=== PATIENT | female | born 1970 | race Hispanic/Latino ===

== ENCOUNTER 2017-09-25 12:26 | Emergency (ER) | payer MEDICAID, OTHER ==
[2017-09-25 13:35] LABS: APPEARANCE,URINE Clear (CLEAR); BILIRUBIN,URINE Negative (NEGATIVE); COLOR,URINE Yellow (YELLOW); GLUCOSE, URINE (UA) Negative (NEGATIVE); KETONES,URINE Negative (NEGATIVE); LEUKOCYTE ESTERASE ,URINE Trace (NEGATIVE); NITRATE,URINE Negative (NEGATIVE); OCCULT BLOOD,URINE Small (NEGATIVE); PH,URINE 8.5 (5.0-8.0); PROTEIN,URINE Negative (NEGATIVE); UROBILINOGEN,URINE 0.2 mg/dL (0.2-1.0)
[2017-09-25 13:37] LABS: HCG,QUAL RESULT NEGATIVE (NEGATIVE)
[2017-09-25 13:44] LABS: RBC,URINE 0-1 /HPF (0-1); SQUAMOUS EPITHELIAL CELL,UR Rare /HPF (0-2)
[2017-09-25 13:45] LABS: BACTERIA,URINE Few /HPF (None Seen); WBC,URINE 0-1 /HPF (0-1); YEAST,URINE BUDDING Few /HPF (None Seen)
[2017-09-25 13:47] LABS: BASOPHILS % (AUTO) 0.3 % (0.0-5.0); EOSINOPHILS % (AUTO) 9.6 % (0.0-8.0); HEMATOCRIT 41.1 % (36-48); LYMPHOCYTES % (AUTO) 20.5 % (21.0-51.0); MEAN CORPUSCULAR HEMOGLOBIN 31.5 pg (27.0-33.0); MEAN CORPUSCULAR HGB CONC 34.2 g/dL (32.0-36.0); MEAN CORPUSCULAR VOLUME 92.1 fL (79-99); MONOCYTES % (AUTO) 3.9 % (3.0-13.0); NEUTROPHILS % (AUTO) 65.7 % (40.0-77.0); PLATELET COUNT (AUTO) 235 K/uL (130-400); RED BLOOD CELL COUNT(AUTO) 4.46 MIL/uL (4.00-5.50); RED CELL DISTRIBUTION WIDTH 12.8 % (11.0-15.5); WHITE BLOOD COUNT (AUTO) 9.1 K/uL (4.8-10.8)
[2017-09-25 13:55] LABS: CREATININE 0.6 mg/dL (0.5-1.5)
[2017-09-25 14:00] LABS: ALBUMIN 3.7 g/dL (3.5-5.0); BILIRUBIN,TOTAL 0.4 mg/dL (0.2-1.0); TOTAL PROTEIN, SERUM 7.4 g/dL (6.0-8.3)
[2017-09-25] MEDS ORDERED: KETOROLAC TROMETHAMINE 30MG/ML ONE (14:03)
[2017-09-25] MEDS ORDERED: ONDANSETRON HCL MDV 20ML 2 MG/ML VIAL ONE (14:03)
[2017-09-25] MEDS ORDERED: SODIUM CHLORIDE 0.9% 1000ML 1,000 ML IV ONE (14:03)
[2017-09-25] MEDS ORDERED: IOPAMIDOL-370 75 ML VIAL IV ONE (14:28)
== END 2017-09-25 15:28 | disposition home or self-care (01) ==
LOC: EDH 12:26
DX: R10.32 Left lower quadrant pain (principal); R50.9 Fever, unspecified; M79.1 Myalgia; Z79.899 Other long term (current) drug therapy
CPT/HCPCS: 36415; 74177; 80053; 81001; 81025; 85025; 87040 ×2; 96374; 96375; 99285; J1885; J7030; Q9967

== ENCOUNTER 2018-09-25 09:38 | Emergency (ER) | payer OTHER ==
[2018-09-25 10:12] LABS: BASOPHILS % (AUTO) 0.7 % (0.0-5.0); EOSINOPHILS % (AUTO) 1.5 % (0.0-8.0); LYMPHOCYTES % (AUTO) 45.9 % (21.0-51.0); MEAN CORPUSCULAR HEMOGLOBIN 30.2 pg (27.0-33.0); MEAN CORPUSCULAR HGB CONC 32.8 g/dL (32.0-36.0); NEUTROPHILS % (AUTO) 46.9 % (40.0-77.0); PLATELET COUNT (AUTO) 241 K/uL (130-400); RED BLOOD CELL COUNT(AUTO) 4.57 MIL/uL (4.00-5.50); RED CELL DISTRIBUTION WIDTH 13.4 % (11.0-15.5); WHITE BLOOD COUNT (AUTO) 7.1 K/uL (4.8-10.8)
[2018-09-25 10:18] LABS: CREATININE 0.7 mg/dL (0.5-1.5); POTASSIUM 3.6 mmol/L (3.5-5.1)
[2018-09-25 10:22] LABS: BILIRUBIN,DIRECT 0.1 mg/dL (0.0-0.3); BILIRUBIN,TOTAL 0.4 mg/dL (0.2-1.0); TOTAL PROTEIN, SERUM 7.3 g/dL (6.0-8.3)
[2018-09-25 10:28] LABS: APPEARANCE,URINE CLOUDY (CLEAR); BILIRUBIN,URINE NEGATIVE (NEGATIVE); COLOR,URINE YELLOW (YELLOW); GLUCOSE, URINE (UA) NEGATIVE (NEGATIVE); KETONES,URINE NEGATIVE (NEGATIVE); LEUKOCYTE ESTERASE ,URINE NEGATIVE (NEGATIVE); NITRATE,URINE NEGATIVE (NEGATIVE); OCCULT BLOOD,URINE LARGE (NEGATIVE); PROTEIN,URINE TRACE mg/dL (NEGATIVE); UROBILINOGEN,URINE 0.2 mg/dL (0.2-1.0)
[2018-09-25 10:32] LABS: HCG,QUAL RESULT NEGATIVE (NEGATIVE)
[2018-09-25 10:38] LABS: RBC,URINE TNTC /HPF (0-1)
[2018-09-25] MEDS ORDERED: KETOROLAC TROMETHAMINE 30MG/ML ONE (10:38)
[2018-09-25] MEDS ORDERED: ONDANSETRON HCL 4 MG/2 ML VIAL ONE (10:38)
[2018-09-25 10:39] LABS: AMORPHOUS SEDIMENT,UR Many /LPF (None Seen); BACTERIA,URINE Few /HPF (None Seen); SQUAMOUS EPITHELIAL CELL,UR 0-2 /HPF (0-2); WBC,URINE 0-1 /HPF (0-1)
== END 2018-09-25 12:03 | disposition home or self-care (01) ==
LOC: EDH 09:38
DX: N20.0 Calculus of kidney (principal); Z90.49 Acquired absence of other specified parts of digestive tract
CPT/HCPCS: 36415; 74176; 80048; 80076; 81001; 81025; 83690; 84484; 85025; 93005; 96361; 96374; 96375; 99285; J1885; J2405

== ENCOUNTER 2019-02-28 11:04 | Emergency (ER) | payer MEDICAID, OTHER ==
[2019-02-28 11:26] LABS: APPEARANCE,URINE Cloudy (CLEAR); BILIRUBIN,URINE Negative (NEGATIVE); COLOR,URINE Orange (YELLOW); GLUCOSE, URINE (UA) Negative (NEGATIVE); KETONES,URINE 40 mg/dL (NEGATIVE); LEUKOCYTE ESTERASE ,URINE Small (NEGATIVE); NITRATE,URINE Negative (NEGATIVE); OCCULT BLOOD,URINE Large (NEGATIVE); PROTEIN,URINE Trace mg/dL (NEGATIVE)
[2019-02-28] MEDS ORDERED: SODIUM CHLORIDE 0.9% 1000ML 1,000 ML IV ONE (11:35)
[2019-02-28] MEDS ORDERED: ONDANSETRON HCL 4 MG/2 ML VIAL ONE (11:35)
[2019-02-28] MEDS ORDERED: KETOROLAC TROMETHAMINE 30MG/ML ONE (11:36)
[2019-02-28 11:40] LABS: BACTERIA,URINE Few /HPF (None Seen); RBC,URINE TNTC /HPF (0-1); WBC,URINE 0-1 /HPF (0-1)
[2019-02-28 11:46] LABS: BASOPHILS % (AUTO) 0.4 % (0.0-5.0); EOSINOPHILS % (AUTO) 0.5 % (0.0-8.0); HEMATOCRIT 40.6 % (36-48); LYMPHOCYTES % (AUTO) 15.5 % (21.0-51.0); MEAN CORPUSCULAR HEMOGLOBIN 31.4 pg (27.0-33.0); MEAN CORPUSCULAR HGB CONC 33.9 g/dL (32.0-36.0); MEAN CORPUSCULAR VOLUME 92.7 fL (79-99); MONOCYTES % (AUTO) 4.3 % (3.0-13.0); NEUTROPHILS % (AUTO) 79.3 % (40.0-77.0); PLATELET COUNT (AUTO) 188 K/uL (130-400); RED BLOOD CELL COUNT(AUTO) 4.38 MIL/uL (4.00-5.50); WHITE BLOOD COUNT (AUTO) 11.4 K/uL (4.8-10.8)
[2019-02-28 11:53] LABS: CREATININE 0.8 mg/dL (0.5-1.5); POTASSIUM 3.8 mmol/L (3.5-5.1)
== END 2019-02-28 13:17 | disposition home or self-care (01) ==
LOC: EDH 11:04
DX: N23 Unspecified renal colic (principal); R11.2 Nausea with vomiting, unspecified; R50.9 Fever, unspecified; Z90.49 Acquired absence of other specified parts of digestive tract
CPT/HCPCS: 36415; 76770; 80048; 81001; 81025; 85025; 96361; 96374; 96375; 99285; J1885; J2405; J7030

== ENCOUNTER 2021-01-26 12:06 | Emergency (ER) | payer MEDICAID, OTHER ==
[~2021-01-26] VITALS: Ht 152.4 cm; Wt 63.5 kg
[2021-01-26] MEDS ORDERED: KETOROLAC 60 MG VIAL (30MG/ML) IM SCH (12:30)
[2021-01-26 12:33] VITALS: BP 103/57
[2021-01-26] MEDS ORDERED: MELO7.5T12 PO (13:14)
== END 2021-01-26 13:49 | disposition home or self-care (01) ==
LOC: EDH 12:06
DX: S70.02XA Contusion of left hip, initial encounter (principal); S80.02XA Contusion of left knee, initial encounter; Z79.1 Long term (current) use of non-steroidal anti-inflammatories (NSAID); X58.XXXA Exposure to other specified factors, initial encounter; Y93.89 Activity, other specified; Y92.89 Other specified places as the place of occurrence of the external cause; Y99.8 Other external cause status
CPT/HCPCS: 73502; 73562; 96372; 99284; J1885